=== PATIENT | female | born 1985 | race Caucasian/White ===

== ENCOUNTER 2017-01-06 23:04 | Emergency (ER) | payer MEDICAID ==
[~2017-01-06] VITALS: Ht 165.1 cm; Wt 65.8 kg
[2017-01-07] MEDS ORDERED: HYDROCODONE/APAP 5-325MG TABLET PO ONE (00:15)
[2017-01-07] MEDS ORDERED: LIDOCAINE HCL 1% 20 ML VIAL TP ONE (00:15)
[2017-01-07] MEDS ORDERED: HYDROCODONE/APAP 5-325MG TABLET ONE (00:30)
[2017-01-07] MEDS ORDERED: LET TOPICAL SOLUTION 8 ML UDC TP ONE (01:00)
[2017-01-07] MEDS ORDERED: LET TOPICAL SOLUTION 8 ML UDC ONE ×2 (01:03→01:07)
[2017-01-07] MEDS ORDERED: CEPHALEXIN MONOHYDRATE 500 MG CAPSULE PO ONE (01:15)
[2017-01-07] MEDS ORDERED: CEPHALEXIN MONOHYDRATE 500 MG CAPSULE ONE (01:33)
--- NOTE | 2017-01-07 01:41 | NUR ---
Patient discharged to home in stable conditon. Written and verbal after care instructions given. Patient verbalizes understanding of instructions.
[2017-01-07 01:43] VITALS: BP 118/78
== END 2017-01-07 01:44 | disposition home or self-care (01) ==
LOC: ER 23:04
DX: S93.601A Unspecified sprain of right foot, initial encounter (principal); L02.412 Cutaneous abscess of left axilla; W01.0XXA Fall on same level from slipping, tripping and stumbling without subsequent striking against object, initial encounter; Y93.89 Activity, other specified; Y92.89 Other specified places as the place of occurrence of the external cause; Y99.8 Other external cause status; Z88.2 Allergy status to sulfonamides; Z88.6 Allergy status to analgesic agent
CPT/HCPCS: 73630; 99284; A4217; A4663